=== PATIENT | female | born 1970 | race Two or more races ===

== ENCOUNTER 2017-11-09 21:53 | Emergency (ER) | payer SELFPAY ==
[2017-11-09 22:35] VITALS: BP 128/60
[2017-11-09] MEDS ORDERED: CIPROFLOXACIN HCL/DEXAMETH OTIC DROP 7.5 ML AS ONE (23:05)
--- NOTE | 2017-11-09 23:10 | ER Document Report ---
HPI - HPI Pain Level: 4 Notes: Patient is a 47-year-old female with a history of seizures who presents to the ED complaining of right ear pain, swelling, and clear discharge 1 week. Patient has not been evaluated for this as of yet. She has not noticed any other decrease in her hearing, dizziness, or tinnitus. She is eating and drinking without any difficulties. The pain does not radiate. She is urinating normally and having normal bowel movements. Denies any drug allergies. No recent swimming. No other concerns or complaints at this time. Denies any headache, fever, head injury, neck pain, URI, sore throat, chest pain , palpitations, syncope, cough, shortness of breath, wheeze, dyspnea, abdominal pain, nausea/vomiting/diarrhea, urinary retention, dysuria, hematuria, or rash. - ROS Systems Reviewed and Negative: Yes All other systems reviewed and negative - CONSTITUTIONAL Constitutional: DENIES: Fever, Chills - EENT EENT: REPORTS: Ear Pain - 3 days drainage - NEURO Neurology: DENIES: Headache, Weakness, Vision blurred, Dizzinesss / Vertigo - CARDIOVASCULAR Cardiovascular: DENIES: Chest pain - RESPIRATORY Respiratory: DENIES: Trouble Breathing, Coughing - GASTROINTESTINAL Gastrointestinal: REPORTS: Abdominal Pain - 6 months - URINARY Urinary: REPORTS: Urgency, Frequency - MUSCULOSKELETAL Musculoskeletal: DENIES: Extremity pain Past Medical History - Social History Smoking Status: Never Smoker Chew tobacco use (# tins/day): No Frequency of alcohol use: None Drug Abuse: None Family History: Reviewed & Not Pertinent Patient has suicidal ideation: No Patient has homicidal ideation: No Neurological Medical History: Reports: Hx Seizures Renal/ Medical History: Denies: Hx Peritoneal Dialysis Past Surgical History: Reports: Hx Cholecystectomy - 3-4 years ago - Immunizations Hx Diphtheria, Pertussis, Tetanus Vaccination: Yes Vertical Provider Document - CONSTITUTIONAL Agree With Documented VS: Yes Notes: PHYSICAL EXAMINATION: GENERAL: Well-appearing, well-nourished and in no acute distress. A&Ox4. Answers questions appropriately. Moves comfortably w/o notable distress HEAD: Atraumatic, normocephalic. EYES: Pupils equal round and reactive to light, extraocular movements intact, sclera anicteric, conjunctiva are normal. ENT: Lt EAC clear. Rt EAC is swollen, scant discharge, + tenderness, mild erythema. No mastoid tenderness or swelling. Rt TM not visualized. Lt TM intact b/l without erythema, fluid, or perforation. Nares patent and without discharge. oropharynx no erythema without exudates. No tonsilar hypertrophy without erythema or exudate. No palatine shift. Uvula midline. No tongue protrusion. No drooling, hoarseness, or airway compromise. Moist mucous membranes. No sinus tenderness. NECK: Normal range of motion, supple without lymphadenopathy. No rigidity/ meningismus. LUNGS: Breath sounds clear to auscultation bilaterally and equal. No wheezes rales or rhonchi. No retractions HEART: Regular rate and rhythm without murmurs, rubs, gallops. NEUROLOGICAL: Normal speech, normal gait. Normal sensory, motor exams PSYCH: Normal mood, normal affect. SKIN: Warm, Dry, normal turgor, no rashes or lesions noted. - INFECTION CONTROL TRAVEL OUTSIDE OF THE [place] IN LAST 30 DAYS: No Course - Re-evaluation Re-evalutation: 11/09/17 23:10 Patient is an afebrile, well-hydrated, 47-year-old female who presents to the ED with an acute otitis externa of the right ear. Vitals are acceptable. PE is otherwise unremarkable. Ear wick was placed successfully without any complications and ciprodex applied. Patient has no significant tachycardia, tachypnea, or hypoxia. She is tolerating p.o. without any difficulties. No other labs or imaging warranted at this time based on H&P. Low suspicion for any sepsis, meningitis, severe dehydration, respiratory compromise, mastoiditis , or other systemic emergent condition at this time. Patient is aware that condition can change from initial presentation and she needs to monitor symptoms closely and seek medical attention with any acute changes. Conservative measures otherwise for symptoms. Recheck with your PCM in 3-5 days. Consider consult with ENT. Return to the ED with any worsening/ concerning symptoms otherwise as reviewed discharge. Patient is in agreement. - Vital Signs Vital signs: Temp Pulse Resp BP Pulse Ox 98.7 F 68 128/60 H 97 11/09/17 22:34 11/09/17 22:34 11/09/17 22:34 11/09/17 22:34 Procedures - Additional Procedures ear wick placement Time performed: 11:10 Additional Procedures: Other - ear wick placed successfully w/o complication. pt tolerated proc well. Discharge - Discharge Clinical Impression: Acute otitis externa of right ear Qualifiers: Otitis externa type: unspecified type Qualified Code(s): H60.501 - Unspecified acute noninfective otitis externa, right ear Condition: Stable Disposition: HOME, SELF-CARE Instructions: Using Ear Drops with a Wick ([facility]), Otitis Externa ([facility]) Additional Instructions: Maintain adequate fluid intake Take meds as directed Keep ears clean, avoid use of q-tips tylenol/ibuprofen as needed Wash your hands regularly F/u: with your PCM in 3-5 days for a recheck Consider consult with ENT Return to the ED with any fever, worsening pain, chest pain, palpitations, syncope, worsening NASSAR, neck pain/stiffness, shortness of breath, wheezing, drooling, trouble swallowing/breathing, abdominal pain, n/v/d, rash, or worsening/concerning symptoms otherwise. Prescriptions: Ciprofloxacin HCl/Dexameth [Ciprodex Otic Suspension 7.5 ml Bottle] 4 drop OT BID #1 bottle Forms: Elevated Blood Pressure Referrals: CJ TANNER DO [ASSOCIATE] - Follow up as needed
== END 2017-11-09 23:20 | disposition home or self-care (01) ==
LOC: ER 21:53
DX: H60.501 Unspecified acute noninfective otitis externa, right ear (principal); H92.01 Otalgia, right ear; R10.9 Unspecified abdominal pain
CPT/HCPCS: 99283; J3490

== ENCOUNTER → 2018-09-02 | Outpatient (CLI) | payer SELFPAY ==
--- NOTE | 2018-09-02 15:12 | RADIOLOGY REPORT (SQ) ---
EXAM DESCRIPTION: U/S NON-OB PELVIS W/O DOP COMPLETED DATE/TIME: 09/02/2018 1:47 pm REASON FOR STUDY: IRREGULAR MENSES (N92.0) N92.0 EXCESSIVE AND FREQUENT MENSTRUATION WITH REGULAR C YCLE COMPARISON: None. TECHNIQUE: Dynamic and static grayscale images acquired of the pelvis via transabdominal approach an d recorded on PACS. Additional selected color Doppler and spectral images recorded. LIMITATIONS: None. FINDINGS: UTERUS: Contour normal. No mass. ENDOMETRIAL STRIPE: Heterogenous echotexture. CERVIX: No nabothian cysts. RIGHT OVARY AND DOPPLER: Normal size. No worrisome masses. Normal arterial vascular flow without evid ence for torsion. LEFT OVARY AND DOPPLER: Normal size. A 2.4 x 2.2 x 3.1 cm cyst. Normal arterial vascular flow witho ut evidence for torsion. FREE FLUID: None noted. OTHER: No other significant finding. MEASUREMENTS: UTERUS: 11.7 x 5.8 x 5.6 cm ENDOMETRIAL STRIPE: 7.9 mm RIGHT OVARY: 2.8 x 1.5 x 3.3 cm LEFT OVARY: 4.2 x 2.4 x 4.0 cm IMPRESSION: 1. The uterus is mildly prominent in size. 2. Heterogenous appearing echotexture involves the endometrial cavity. No discrete focal mass visua lized. Correlation suggested. 3. Left ovarian cyst. TECHNICAL DOCUMENTATION: JOB ID: [id number]- All Rights Reserved Rev-11/09 Reading location - IP/workstation name: [email or web address]
== END ==
LOC: RAD 12:52
PROVIDERS: ATTEND Obstetrics & Gynecology
DX: N92.0 Excessive and frequent menstruation with regular cycle (principal)
CPT/HCPCS: 76856